=== PATIENT | male | born 1975 | race Caucasian/White ===

== ENCOUNTER 2018-10-24 02:33 | Emergency (ER) | payer OTHER ==
[~2018-10-24] VITALS: Ht 175.3 cm; Wt 86.7 kg
[2018-10-24 02:38] VITALS: BP 126/84; Ht 175.3 cm; Wt 86.7 kg
== END 2018-10-24 03:35 | disposition home or self-care (01) ==
LOC: ED 02:33
DX: B00.1 Herpesviral vesicular dermatitis (principal); G89.29 Other chronic pain; J45.909 Unspecified asthma, uncomplicated